=== PATIENT | male | born 1975 | race Two or more races ===

== ENCOUNTER 2025-08-01 09:48 | Emergency (ER) | payer SELFPAY ==
[~2025-08-01] VITALS: Ht 154.9 cm; Wt 66.2 kg
[2025-08-01] MEDS ORDERED: ACETAMINOPHEN ES 500 MG TABLET ONE (10:01)
[2025-08-01] MEDS: ACETAMINOPHEN ES 500 MG TABLET PO ONE (10:02)
[2025-08-01] MEDS ORDERED: IBUP-1957 PO (10:32)
[2025-08-01 11:09] VITALS: BP 129/71; TEMP 98.1; O2SAT 99
== END 2025-08-01 11:09 | disposition home or self-care (01) ==
LOC: ER 09:57
DX: S20.212A Contusion of left front wall of thorax, initial encounter (principal); Z79.1 Long term (current) use of non-steroidal anti-inflammatories (NSAID); V89.2XXA Person injured in unspecified motor-vehicle accident, traffic, initial encounter; Y93.89 Activity, other specified; Y92.410 Unspecified street and highway as the place of occurrence of the external cause; Y99.8 Other external cause status